=== PATIENT | female | born 1970 | race Caucasian/White ===

== ENCOUNTER → 2018-01-06 | Outpatient (CLI) | payer BC ==
--- NOTE | 2018-01-10 13:24 | MM ---
Reason for exam: screening (asymptomatic). Last mammogram was performed 3 years and 3 months ago. History: Took hormonal contraceptives for 15 years. Physical Findings: A clinical breast exam by your physician is recommended on an annual basis and results should be correlated with mammographic findings. MG 3D Screening Mammo W/Cad Bilateral CC and MLO view(s) were taken. Prior study comparison: September 26, 2014, bilateral MG screening mammo w CAD. May 24, 2012, CAD bilateral diagnostic mammogram. There are scattered fibroglandular densities. There are benign appearing round calcifications bilaterally. There is no discrete abnormality. ASSESSMENT: Benign, BI-RAD 2 RECOMMENDATION: Routine screening mammogram of both breasts in 1 year.
== END | disposition home or self-care (01) ==
LOC: RADMAMWWP 10:23
PROVIDERS: ATTEND Family Medicine
DX: Z12.31 Encounter for screening mammogram for malignant neoplasm of breast (principal)
CPT/HCPCS: 77063; 77067

== ENCOUNTER → 2018-07-11 | Outpatient (CLI) | payer BC ==
--- NOTE | 2018-07-11 13:10 | MR ---
EXAMINATION TYPE: MR wrist LT wo con DATE OF EXAM: 07/11/2018 COMPARISON: None HISTORY: radial styloid tenosynovitis TECHNIQUE: Standard multiplanar, multisequence MRI of the left wrist was performed per department pro tocol without intravenous contrast. FINDINGS: There are multiple subchondral cysts seen within the distal ulna. Additionally there is a small gangl ion cyst seen at the volar aspect of the ulnar styloid process measuring 4 x 3 x 3 mm. The triangular fibrocartilage appears grossly intact with a physiologic central perforation. Tiny subchondral cysts are noted of the lunate bone. Few marginal osteophytes are seen at the first c arpometacarpal joint. Bone marrow signal is otherwise unremarkable of the left wrist. No evidence of acute fracture or disl ocation is seen. Extensor and flexor compartments are unremarkable. Ulnar and radial arteries appear unremarkable. Med navarro nerve is within normal limits. There is tendon thickening and surrounding increased signal of the extensor pollicis brevis and abduc tor pollicis longus (compartment 1) tendons. There is no evidence of tendon discontinuity. IMPRESSION: 1. Moderate extensive pollicis brevis and abductor pollicis longus tenosynovitis without evidence of tendon tear. 2. Mild left wrist arthropathy with subchondral cyst formation of the distal ulna, lunate, and few os teophytes at the first carpometacarpal joint. 3. Incidental 4 mm volar ganglion cysts overlying the distal ulna.
== END | disposition home or self-care (01) ==
LOC: RADMRIMAIN 12:03
PROVIDERS: ATTEND Family Medicine
DX: M65.832 Other synovitis and tenosynovitis, left forearm (principal); M12.832 Other specific arthropathies, not elsewhere classified, left wrist; M85.432 Solitary bone cyst, left ulna and radius; M25.732 Osteophyte, left wrist

== ENCOUNTER 2020-04-13 12:57 | Inpatient (IN) | payer BC, OTHER ==
[2020-04-13] MEDS ORDERED: KETOROLAC 15 MG/ML 1 ML VIAL IVP STA (13:37)
--- NOTE | 2020-04-13 13:57 | XR ---
EXAMINATION TYPE: XR chest 1V portable DATE OF EXAM: 04/13/2020 COMPARISON: None. HISTORY: Shortness of breath. TECHNIQUE: Single frontal view of the chest is obtained. FINDINGS: There is small to moderate right basilar opacity. No pleural effusion, or pneumothorax see n. The cardiac silhouette size is within normal limits. The osseous structures are intact. IMPRESSION: Right basilar infiltrate in the appropriate clinical setting.
--- NOTE | 2020-04-13 14:06 | ED ---
General Adult HPI - General Chief complaint: Chest Pain Stated complaint: covid +, chest heaviness Time Seen by Provider: 04/13/20 13:15 Source: patient, RN notes reviewed Mode of arrival: ambulatory Limitations: no limitations - History of Present Illness Initial comments: Patient is a pleasant 79-year-old female presenting to emergency Department with chest discomfort. Onset of symptoms was a past few days. Discomfort is present with deep breaths otherwise there may be some minimal symptoms. Patient was diagnosed with Rolon virus several days ago. Patient was having symptoms over the past week. Patient did have fever and fatigue and myalgias however the most of those symptoms have improved. Only minimal cough. No dyspnea. No calf pain . - Related Data Home Medications Medication Instructions Recorded Confirmed Calcium Carb/Vitamin D3/Vit K1 1 each PO HS 03/15/16 03/17/16 [Citracal Soft Chew] Marleni 1 tab PO HS 03/15/16 03/17/16 FLUoxetine HCL [PROzac] 10 mg PO HS 03/15/16 03/17/16 Omeprazole 40 mg PO DAILY 03/15/16 03/17/16 Simvastatin [Zocor] 10 mg PO HS 03/15/16 03/17/16 Allergies Allergy/AdvReac Type Severity Reaction Status Date / Time acetaminophen [From Vicodin] Allergy Nausea & Verified 03/17/16 10:14 Vomiting hydrocodone [From Vicodin] Allergy Nausea & Verified 03/17/16 10:14 Vomiting hydromorphone [From Dilaudid] Allergy Rash/Hives Verified 03/17/16 10:14 Review of Systems ROS Statement: Those systems with pertinent positive or pertinent negative responses have been documented in the HPI. ROS Other: All systems not noted in ROS Statement are negative. Constitutional: Reports: as per HPI, fever (Patient has been taking frequent Tylenol and Motrin) Eyes: Denies: eye pain ENT: Denies: ear pain Respiratory: Reports: as per HPI Cardiovascular: Reports: as per HPI Endocrine: Reports: fatigue Gastrointestinal: Denies: abdominal pain Genitourinary: Denies: dysuria Musculoskeletal: Denies: back pain Skin: Denies: rash Neurological: Denies: weakness Past Medical History Past Medical History: GERD/Reflux Additional Past Medical History / Comment(s): barretts esophagus History of Any Multi-Drug Resistant Organisms: None Reported Past Surgical History: Adenoidectomy, Back Surgery, Section, Cholecystectomy, Tonsillectomy Additional Past Surgical History / Comment(s): lithotripsy Past Anesthesia/Blood Transfusion Reactions: No Reported Reaction Smoking Status: Never smoker Past Alcohol Use History: None Reported Past Drug Use History: None Reported - Past Family History Sister(s) Family Medical History: Blood Disorder, Deep Vein Thrombosis (DVT) Daughter(s) Family Medical History: Blood Disorder General Exam Limitations: no limitations General appearance: alert, in no apparent distress Head exam: Present: normocephalic Eye exam: Present: normal appearance Neck exam: Present: normal inspection Respiratory exam: Present: normal lung sounds bilaterally. Absent: chest wall tenderness Cardiovascular Exam: Present: regular rate, normal rhythm Expanded Peripheral pulses: 2+: Radial (R), Radial (L), Dorsalis Pedis (R), Dorsalis Pedis (L) GI/Abdominal exam: Present: soft. Absent: tenderness Extremities exam: Present: normal inspection. Absent: pedal edema, calf tenderness Neurological exam: Present: alert Psychiatric exam: Present: normal affect, normal mood Skin exam: Present: normal color Course Vital Signs 04/13/20 13:10 Temperature 98.3 F Pulse Rate 116 H Respiratory 18 Rate Blood Pressure 126/62 O2 Sat by Pulse 96 Oximetry - Reevaluation(s) Reevaluation #1: 04/13/20 14:54 There is concern for sepsis diagnosed at 1450. Blood culture and lactic acid and IV antibiotics will be ordered. EKG Findings - EKG Comments: EKG Findings:: Sinus tachycardia 101. DC 114. QRS 88. QT 340. QTc 440. Normal axis. Normal QRS. No acute ST change. Medical Decision Making - Medical Decision Making Patient is cold with positive however chest x-ray has appearance of more typical pneumonia. Patient will be covered with IV antibiotics for this. Patient does meet sepsis criteria. Case discussed with Dr. Perkins, who will admit covering for Dr. Arnold. - Lab Data Result diagrams: 04/13/20 14:13 04/13/20 14:13 Lab Results 04/13/20 04/13/20 04/13/20 Range/Units 14:13 14:13 14:13 WBC 2.5 L (3.8-10.6) k/uL RBC 5.00 (3.80-5.40) m/uL Hgb 12.5 (11.4-16.0) gm/dL Hct 37.5 (34.0-46.0) % MCV 75.0 L (80.0-100.0) fL MCH 25.1 (25.0-35.0) pg MCHC 33.5 (31.0-37.0) g/dL RDW 16.0 H (11.5-15.5) % Plt Count 153 (150-450) k/uL MPV 7.8 Neutrophils % 70 % Lymphocytes % 20 % Monocytes % 6 % Eosinophils % 1 % Basophils % 2 % Neutrophils # 1.8 (1.3-7.7) k/uL Lymphocytes # 0.5 L (1.0-4.8) k/uL Monocytes # 0.1 (0-1.0) k/uL Eosinophils # 0.0 (0-0.7) k/uL Basophils # 0.1 (0-0.2) k/uL Anisocytosis Slight Microcytosis Slight Sodium 139 (137-145) mmol/L Potassium 4.4 (3.5-5.1) mmol/L Chloride 104 (98-107) mmol/L Carbon Dioxide 27 (22-30) mmol/L Anion Gap 8 mmol/L BUN 9 (7-17) mg/dL Creatinine 0.63 (0.52-1.04) mg/dL Est GFR (CKD-EPI)AfAm >90 (>60 ml/min/1.73 sqM) Est GFR (CKD-EPI)NonAf >90 (>60 ml/min/1.73 sqM) Glucose 90 (74-99) mg/dL Plasma Lactic Acid Zeyad 1.3 (0.7-2.0) mmol/L Calcium 8.5 (8.4-10.2) mg/dL Magnesium 2.1 (1.6-2.3) mg/dL Total Bilirubin 0.5 (0.2-1.3) mg/dL AST 30 (14-36) U/L ALT 20 (4-34) U/L Alkaline Phosphatase 71 (38-126) U/L Lactate Dehydrogenase 612 (313-618) U/L Troponin I (0.000-0.034) ng/mL Total Protein 6.6 (6.3-8.2) g/dL Albumin 3.8 (3.5-5.0) g/dL 04/13/20 Range/Units 14:13 WBC (3.8-10.6) k/uL RBC (3.80-5.40) m/uL Hgb (11.4-16.0) gm/dL Hct (34.0-46.0) % MCV (80.0-100.0) fL MCH (25.0-35.0) pg MCHC (31.0-37.0) g/dL RDW (11.5-15.5) % Plt Count (150-450) k/uL MPV Neutrophils % % Lymphocytes % % Monocytes % % Eosinophils % % Basophils % % Neutrophils # (1.3-7.7) k/uL Lymphocytes # (1.0-4.8) k/uL Monocytes # (0-1.0) k/uL Eosinophils # (0-0.7) k/uL Basophils # (0-0.2) k/uL Anisocytosis Microcytosis Sodium (137-145) mmol/L Potassium (3.5-5.1) mmol/L Chloride (98-107) mmol/L Carbon Dioxide (22-30) mmol/L Anion Gap mmol/L BUN (7-17) mg/dL Creatinine (0.52-1.04) mg/dL Est GFR (CKD-EPI)AfAm (>60 ml/min/1.73 sqM) Est GFR (CKD-EPI)NonAf (>60 ml/min/1.73 sqM) Glucose (74-99) mg/dL Plasma Lactic Acid Zeyad (0.7-2.0) mmol/L Calcium (8.4-10.2) mg/dL Magnesium (1.6-2.3) mg/dL Total Bilirubin (0.2-1.3) mg/dL AST (14-36) U/L ALT (4-34) U/L Alkaline Phosphatase (38-126) U/L Lactate Dehydrogenase (313-618) U/L Troponin I <0.012 (0.000-0.034) ng/mL Total Protein (6.3-8.2) g/dL Albumin (3.5-5.0) g/dL - Radiology Data Radiology results: image reviewed (Chest x-ray shows right basilar infiltrate.) Critical Care Time Critical Care Time: Yes Total Critical Care Time: 33 Disposition Clinical Impression: Pneumonia, Sepsis, COVID-19 Disposition: ADMITTED IP TO THIS HOSP Is patient prescribed a controlled substance at d/c from ED?: No Referrals: Lacy Arnold DO [Primary Care Provider] - 1-2 days Decision Time: 14:53
[2020-04-13 14:22] LABS: Anisocytosis Slight; Basophils # (A) 0.1 k/uL (0-0.2); Basophils % (A) 2 %; Eosinophils % (A) 1 %; HCT 37.5 % (34.0-46.0); HGB 12.5 gm/dL (11.4-16.0); Lymphocytes # (A) 0.5 k/uL (1.0-4.8); Lymphocytes % (A) 20 %; MCH 25.1 pg (25.0-35.0); MCHC 33.5 g/dL (31.0-37.0); Mean Platelet Volume 7.8; Microcytosis Slight; Monocytes # (A) 0.1 k/uL (0-1.0); Monocytes % (A) 6 %; Neutrophils # (A) 1.8 k/uL (1.3-7.7); Neutrophils % (A) 70 %; Platelet Count 153 k/uL (150-450); WBC 2.5 k/uL (3.8-10.6)
[2020-04-13 14:36] LABS: ALT 20 U/L (4-34); AST 30 U/L (14-36); African American GFR (CKD) >90 (>60 ml/min/1.73 sqM); Albumin 3.8 g/dL (3.5-5.0); Alkaline Phosphatase 71 U/L (38-126); Anion Gap 8 mmol/L; Blood Urea Nitrogen 9 mg/dL (7-17); Calcium 8.5 mg/dL (8.4-10.2); Carbon Dioxide 27 mmol/L (22-30); Chloride 104 mmol/L (98-107); Glucose 90 mg/dL (74-99); LDH 612 U/L (313-618); Magnesium 2.1 mg/dL (1.6-2.3); Non-African American GFR(CKD) >90 (>60 ml/min/1.73 sqM); Potassium 4.4 mmol/L (3.5-5.1); Sodium 139 mmol/L (137-145); Total Bilirubin 0.5 mg/dL (0.2-1.3); Total Protein 6.6 g/dL (6.3-8.2)
[2020-04-13] MEDS ORDERED: SODIUM CHLORIDE 0.9% 1,000 ML IV STA (14:43)
[2020-04-13 14:49] LABS: INR 0.9 (<1.2); Partial Thromboplastin Time 26.2 sec (22.0-30.0); Prothrombin Time 9.9 sec (9.0-12.0)
[2020-04-13] MEDS ORDERED: PNEUMONIA PROTOCOL UTILIZED 1 EACH MISC PO PRN (14:54)
[2020-04-13] MEDS ORDERED: AZITHROMYCIN 500 MG in SODIUM CHLORIDE 0.9% 250 ML IVPB STA (14:54)
[2020-04-13 15:03] LABS: D-Dimer 1.24 mg/L FEU (<0.60)
[2020-04-13 15:06] LABS: C Reactive Protein 128.5 mg/L (<10.0)
--- NOTE | 2020-04-13 15:39 | CT ---
EXAMINATION TYPE: CT angio chest DATE OF EXAM: 04/13/2020 3:21 PM COMPARISON: Same-day radiograph. HISTORY: elevated d-dimer, covid + CT DLP: 287.7 mGycm Automated exposure control for dose reduction was used. CONTRAST: CTA scan of the thorax is performed with IV Contrast, patient injected with 80 mL of Isovue 370, pulm onary embolism protocol. MIP images are created and reviewed. FINDINGS: LUNGS: There is large consolidation with adjacent opacities in the right lower lobe. There is no pl eural effusion or pneumothorax seen. The tracheobronchial tree is patent. MEDIASTINUM: There is satisfactory enhancement of the pulmonary artery and its branches, there is no CT evidence for pulmonary embolism. There are a few mildly enlarged right hilar and subcarinal lymph nodes, may be reactive. No pericardial effusion is seen. OTHER: No additional significant abnormality is seen. IMPRESSION: RIGHT LOWER LOBE PNEUMONIA. NO ACUTE PE.
[2020-04-13] MEDS: SODIUM CHLORIDE 0.9% 1,000 ML IV SCH ×2 (15:54→23:34)
[2020-04-13] MEDS: ZINC SULFATE 220 MG CAP PO SCH (16:10)
[2020-04-13] MEDS: dexAMETHasone 2 MG TAB PO SCH (16:10)
[2020-04-13] MEDS: CHOLECALCIFEROL 1,000 UNIT TAB PO SCH (16:10)
[2020-04-13] MEDS: ENOXAPARIN 40 MG/0.4 ML SYRINGE SQ SCH (16:15)
[2020-04-13] MEDS: ONDANSETRON 4 MG/2 ML VIAL IVP PRN (17:56)
[2020-04-13] MEDS: ACETAMINOPHEN TAB 500 MG TAB PO PRN (18:29)
--- NOTE | 2020-04-13 20:55 | P.HPIM ---
History of Present Illness H&P Date: 04/13/20 Chief Complaint: Shortness of breath Patient is a 49-year-old female with a known history of GERD, Sawyer's esophagus, history of back surgery, lithotripsy and cholecystectomy came to ER with the complaints of chest discomfort and pressure-like sensation associated shortness of breath. Patient states that she was diagnosed with COVID-19 few days ago. Since then she has been having worsening shortness of breath and increased symptoms which made her to come to the ER. Patient is also getting fever on and off. T-max was 100.1 on admission and patient was tachycardic. Pulse ox 96% room air on admission. Chest x-ray showed right basilar infiltrate in the appropriate clinical setting. CT angiogram showed right lower lobe pneumonia. EKG showed sinus tachycardia. Laboratory data showed WBC 2.5, hemoglobin 12.5, MCV 75.0 RDW 16.0 D-dimer is 1.24 CRP 128.5 LDH 612, liver enzymes are not elevated, ferritin is pending at this time. Review of Systems Constitutional: Patient does have fever and no chills. Generalized weakness and malaise and fatigue.. Abdomen: Patient denied nausea vomiting and diarrhea and abdominal pain. Cardiovascular: Patient denies any chest pain or short of breath no palpitations. Respiratory:Cough without sputum production and shortness of breath Neurologic: Patient denied any numbness or tingling headache. Musculoskeletal: Patient denies any complaints of joint swelling or deformity. Skin: Negative Psychiatric: Negative Endocrine: No heat or cold intolerance. No recent weight gain. Genitourinary: No dysuria or hematuria. All other 14 point ROS negative except the above Past Medical History Past Medical History: GERD/Reflux Additional Past Medical History / Comment(s): barretts esophagus History of Any Multi-Drug Resistant Organisms: None Reported Past Surgical History: Adenoidectomy, Back Surgery, Section, Cholecystectomy, Tonsillectomy Additional Past Surgical History / Comment(s): lithotripsy Past Anesthesia/Blood Transfusion Reactions: No Reported Reaction Smoking Status: Never smoker Past Alcohol Use History: None Reported Past Drug Use History: None Reported - Past Family History Sister(s) Family Medical History: Blood Disorder, Deep Vein Thrombosis (DVT) Daughter(s) Family Medical History: Blood Disorder Medications and Allergies Home Medications Medication Instructions Recorded Confirmed Type Calcium Carb/Vitamin D3/Vit K1 1 tab PO HS 10/24/16 11/22/20 History [Citracal Soft Chew] Norethindrone [Lolita] 0.35 mg PO HS 04/13/20 04/13/20 History Omeprazole 20 mg PO DAILY 04/13/20 04/13/20 History levOCARNitine [l-Carnitine] 500 mg PO HS 04/13/20 04/13/20 History Allergies Allergy/AdvReac Type Severity Reaction Status Date / Time hydromorphone [From Dilaudid] Allergy Rash/Hives Verified 04/13/20 15:28 hydrocodone [From Vicodin] AdvReac Nausea & Verified 04/13/20 15:28 Vomiting Physical Exam Vitals: Vital Signs Temp Pulse Resp BP Pulse Ox 04/13/20 16:08 98 18 112/58 100 04/13/20 13:10 98.3 F 116 H 18 126/62 96 Intake and Output 04/13/20 04/13/20 04/13/20 06:59 14:59 22:59 Other: Weight 70.307 kg PHYSICAL EXAMINATION: Patient is lying in the bed comfortably, no acute distress, awake alert and oriented.. HEENT: Normocephalic. Neck is supple. Pupils reactive. Nostrils clear. Oral cavity is moist. Ears reveal no drainage. Neck reveals no JVD, carotid bruits, or thyromegaly. CHEST EXAMINATION: Trachea is central. Symmetrical expansion. Lung clancy clear to auscultation and percussion. CARDIAC: Normal S1, S2 with no gallops. No murmurs ABDOMEN: Soft. Bowel sounds normal. No organomegaly. No abdominal bruits. Extremities: reveal no edema. No clubbing or cyanosis Neurologically awake, alert, oriented x3 with well-coordinated movements. No focal deficits noted Skin: No rash or skin lesions. Psychiatric: Coperative. Nonsuicidal Musculoskeletal: No joint swelling or deformity. Normal range of motion. Results CBC & Chem 7: 04/13/20 14:13 04/13/20 14:13 Labs: Abnormal Lab Results - Last 24 Hours (Table) 04/13/20 04/13/20 04/13/20 Range/Units 14:13 14:13 14:13 WBC 2.5 L (3.8-10.6) k/uL MCV 75.0 L (80.0-100.0) fL RDW 16.0 H (11.5-15.5) % Lymphocytes # 0.5 L (1.0-4.8) k/uL D-Dimer 1.24 H (<0.60) mg/L FEU C-Reactive Protein 128.5 H (<10.0) mg/L Thrombosis Risk Factor Assmnt - DVT/VTE Prophylaxis DVT/VTE Prophylaxis: Pharmacologic Prophylaxis ordered Assessment and Plan Assessment: Right lower lobe pneumonia Sepsis secondary to above Recent history of COVID-19 infection GERD Elevated CRP level DVT prophylaxis with heparin subcu Plan: Patient will be continued on IV hydration and antibiotics now ceftriaxone and azithromycin.. Continue with COVID-19 isolation. Patient was started dexamethasone and Lovenox. Follow-up tumor markers tomorrow. Currently patient is on room air. Continue to follow closely and CBC and BMP tomorrow. Further recommendations based on clinical course. Time with Patient: Greater than 30
[2020-04-13] MEDS: CALCIUM CARB PO SCH (21:49)
[2020-04-13] MEDS: VITAMIN D3 PO SCH (21:49)
[2020-04-13] MEDS: VIT K1 PO SCH (21:49)
[2020-04-13] MEDS: NON FORMULARY DRUG (Norethindrone [Camila] 0.35 MG Tablet) PO SCH (21:49)
[2020-04-13] MEDS: [UNRECOGNIZED DRUG - OTHER] PO SCH (21:49)
[2020-04-13] MEDS: ASCORBIC ACID 500 MG TAB PO SCH (21:54)
[2020-04-13] MEDS: levOCARNitine (WITH SUGAR) 100 MG/ML BOTTLE PO SCH (22:10)
[2020-04-13 23:03] LABS: Ferritin 105.5 ng/mL (10.0-291.0)
[2020-04-14] MEDS: ACETAMINOPHEN TAB 500 MG TAB PO PRN ×2 (06:10→19:25)
[2020-04-14] MEDS: ONDANSETRON 4 MG/2 ML VIAL IVP PRN (06:14)
[2020-04-14] MEDS: SODIUM CHLORIDE 0.9% 1,000 ML IV SCH ×3 (06:26→23:03)
[2020-04-14] MEDS: AZITHROMYCIN 500 MG TAB PO SCH (08:56)
[2020-04-14] MEDS: ZINC SULFATE 220 MG CAP PO SCH (08:56)
[2020-04-14] MEDS: ASCORBIC ACID 500 MG TAB PO SCH ×2 (08:56→21:35)
[2020-04-14] MEDS: dexAMETHasone 2 MG TAB PO SCH (08:57)
[2020-04-14] MEDS: CHOLECALCIFEROL 1,000 UNIT TAB PO SCH (08:57)
[2020-04-14] MEDS: PANTOPRAZOLE 40 MG TABLET PO SCH (08:57)
--- NOTE | 2020-04-14 12:40 | XR ---
EXAMINATION TYPE: XR chest 1V DATE OF EXAM: 04/14/2020 CLINICAL HISTORY: pneumonia. TECHNIQUE: Portable frontal view of the chest. COMPARISON: 04/13/2020 chest radiograph. 04/13/2020 CTA chest. FINDINGS: The cardiomediastinal silhouette is within normal limits for size. Pulmonary vasculature i s normal. Focal right basilar airspace opacity unchanged. No pleural effusion, or pneumothorax seen. The osseous structures are intact. IMPRESSION: Unchanged focal right basilar pneumonia.
--- NOTE | 2020-04-14 13:57 | P.CNPUL ---
History of Present Illness Consult date: 04/14/20 Requesting physician: Andrea Perkins Reason for consult: dyspnea, cough, chest pain Chief complaint: Dyspnea, cough, chest discomfort History of present illness: 79-year-old white female patient of Dr. Lacy Banks, surgical history of GERD/reflux, former smoker, history of back surgery, lithotripsy and cholecystectomy who presented to the emergency department on 04/13/2020 with the shortness of breath and pressure-like sensation in her chest. Patient had outpatient testing for COVID 19 last and apparently she tested positive. Chest x-ray showed bibasilar infiltrate. CT chest showed large consolidation with adjacent opacities in the right lower lobe, no pleural effusion or pneumothorax, EKG showed sinus tachycardia. Lab work showed a white blood cell count is 2.5, hemoglobin of 12.5, lymphopenia with the lymphocyte, 0.5, d-dimer was 1.24, eventually sent renal profile were unremarkable, plasma lactic acid was 1.3, LFTs were within normal limits, troponin was less than 0.012, LDH 612, CRP was elevated at 128.5, pro-calcitonin level was 0.14. Patient was started on Zithromax and Rocephin, oral Decadron. She remains on room air, she is calm and comfortable, denies any chest pain right now, denies any hemoptysis, she is afebrile. Review of Systems All systems: negative Constitutional: Denies chills, Denies fever Eyes: denies blurred vision, denies pain Ears, nose, mouth and throat: Denies headache, Denies sore throat Cardiovascular: Reports chest pain, Denies shortness of breath Respiratory: Denies cough Gastrointestinal: Denies abdominal pain, Denies diarrhea, Denies nausea, Denies vomiting Genitourinary: Denies dysuria, Denies hematuria Musculoskeletal: Denies myalgias Integumentary: Denies pruritus, Denies rash Neurological: Denies numbness, Denies weakness Psychiatric: Denies anxiety, Denies depression Endocrine: Denies fatigue, Denies weight change Past Medical History Past Medical History: GERD/Reflux Additional Past Medical History / Comment(s): barretts esophagus,kidney stones History of Any Multi-Drug Resistant Organisms: None Reported Past Surgical History: Adenoidectomy, Back Surgery, Section, Cholecystectomy, Tonsillectomy Additional Past Surgical History / Comment(s): lithotripsy Past Anesthesia/Blood Transfusion Reactions: No Reported Reaction Past Psychological History: Anxiety Smoking Status: Former smoker Past Alcohol Use History: None Reported Additional Past Alcohol Use History / Comment(s): smoked 28 years 1ppd quit 2011 Past Drug Use History: None Reported - Past Family History Sister(s) Family Medical History: Blood Disorder, Deep Vein Thrombosis (DVT) Daughter(s) Family Medical History: Blood Disorder Medications and Allergies Home Medications Medication Instructions Recorded Confirmed Type Calcium Carb/Vitamin D3/Vit K1 1 tab PO HS 03/15/16 04/13/20 History [Citracal Soft Chew] Norethindrone [Lolita] 0.35 mg PO HS 04/13/20 04/13/20 History Omeprazole 20 mg PO DAILY 04/13/20 04/13/20 History levOCARNitine [l-Carnitine] 500 mg PO HS 04/13/20 04/13/20 History Allergies Allergy/AdvReac Type Severity Reaction Status Date / Time hydromorphone [From Dilaudid] Allergy Rash/Hives Verified 04/13/20 15:28 hydrocodone [From Vicodin] AdvReac Nausea & Verified 04/13/20 15:28 Vomiting Physical Exam Vitals: Vital Signs Temp Pulse Pulse Resp BP BP Pulse Ox 04/14/20 12:27 97.6 F 82 109/70 95 04/14/20 07:00 98.1 F 84 17 94/57 93 L 04/13/20 22:40 97.9 F 95 18 121/74 94 L 04/13/20 19:40 98.4 F 104 H 20 117/61 93 L 04/13/20 18:27 114 H 18 112/68 96 04/13/20 17:51 100.1 F H 122 H 20 123/80 97 04/13/20 16:08 98 18 112/58 100 Intake and Output 04/13/20 04/14/20 04/14/20 22:59 06:59 14:59 Other: # Voids 1 2 Weight 70.307 kg GENERAL EXAM: Alert, very pleasant, 49-year-old white female patient, on room air, with a pulse ox of 95% comfortable in no apparent distress. HEAD: Normocephalic/atraumatic. EYES: Normal reaction of pupils, equal size. Conjunctiva pink, sclera white. NOSE: Clear with pink turbinates. THROAT: No erythema or exudates. NECK: No masses, no JVD, no thyroid enlargement, no adenopathy. CHEST: No chest wall deformity. Symmetrical expansion. LUNGS: Equal air entry with no crackles, wheeze, rhonchi or dullness. CVS: Regular rate and rhythm, normal S1 and S2, no gallops, no murmurs, no rubs ABDOMEN: Soft, nontender. No hepatosplenomegaly, normal bowel sounds, no guarding or rigidity. EXTREMITIES: No clubbing, no edema, no cyanosis, 2+ pulses and upper and lower extremities. MUSCULOSKELETAL: Muscle strength and tone normal. SPINE: No scoliosis or deformity SKIN: No rashes CENTRAL NERVOUS SYSTEM: Alert and oriented -3. No focal deficits, tone is normal in all 4 extremities. PSYCHIATRIC: Alert and oriented -3. Appropriate affect. Intact judgment and insight. Results - Laboratory Findings CBC and BMP: 04/13/20 14:13 04/13/20 14:13 PT/INR, D-dimer PT 9.9 sec (9.0-12.0) 04/13/20 14:13 INR 0.9 (<1.2) 04/13/20 14:13 D-Dimer 1.24 mg/L FEU (<0.60) H 04/13/20 14:13 Abnormal lab findings: Abnormal Labs 04/13/20 04/13/20 04/13/20 14:13 14:13 14:13 WBC 2.5 L MCV 75.0 L RDW 16.0 H Lymphocytes # 0.5 L D-Dimer 1.24 H C-Reactive Protein 128.5 H Procalcitonin 04/13/20 14:13 WBC MCV RDW Lymphocytes # D-Dimer C-Reactive Protein Procalcitonin 0.14 H - Diagnostic Findings Chest x-ray: report reviewed, image reviewed CT scan - chest: report reviewed, image reviewed Assessment and Plan Plan: Assessment: #1. Acute COVID 19 infection, she had outpatient positive COVID 19 PCR test on 04/10/2020 #2. Right focal basilar airspace opacity related to community acquired pneumonia #3. Dyspnea, chest pain related to community acquired pneumonia #4. Armor smoker, currently in remission #5. Lymphopenia related to COVID 19 infection #6. Increased d-dimer was CTA chest negative for pulmonary embolism #7. History of GERD and Sawyer's esophagus #8. History of back surgeries #9. Lithotripsy and cholecystectomy Plan: Continue current antibiotics, continue Decadron, prophylactic dose of Lovenox, patient is on room air, vital signs are stable, no fever or chills, chest x-ray and CT chest reviewed showing right basilar airspace disease related to pneumonia likely bacterial, likely related to community acquired pathogens. We will continue to monitor the patient and monitor oxygenation dyspnea, and febrile pattern. Follow-up chest x-ray in the morning, if she remains stable and continues to improve may consider discharge home on oral antibiotics in the next 24 hours I performed a history & physical examination of the patient and discussed their management with my nurse practitioner, Aisha Kleni. I reviewed the nurse practitioner's note and agree with the documented findings and plan of care. Lung sounds are positive for diminished breath sounds at the right base The findings and the impression was discussed with the patient. I attest to the documentation by the nurse practitioner. Time with Patient: Greater than 30
[2020-04-14] MEDS: ENOXAPARIN 40 MG/0.4 ML SYRINGE SQ SCH (17:08)
[2020-04-14] MEDS: VITAMIN D3 PO SCH (21:37)
[2020-04-14] MEDS: VIT K1 PO SCH (21:37)
[2020-04-14] MEDS: CALCIUM CARB PO SCH (21:37)
[2020-04-14] MEDS: [UNRECOGNIZED DRUG - OTHER] PO SCH (21:37)
[2020-04-14] MEDS: NON FORMULARY DRUG (Norethindrone [Camila] 0.35 MG Tablet) PO SCH (21:38)
--- NOTE | 2020-04-14 22:29 | P.PN ---
Subjective Patient is a 49-year-old female with a known history of GERD, Sawyer's esophagus, history of back surgery, lithotripsy and cholecystectomy came to ER with the complaints of chest discomfort and pressure-like sensation associated shortness of breath. Patient states that she was diagnosed with COVID-19 few days ago. Since then she has been having worsening shortness of breath and increased symptoms which made her to come to the ER. Patient is also getting fever on and off. T-max was 100.1 on admission and patient was tachycardic. Pulse ox 96% room air on admission. Chest x-ray showed right basilar infiltrate in the appropriate clinical setting. CT angiogram showed right lower lobe pneumonia. EKG showed sinus tachycardia. Laboratory data showed WBC 2.5, hemoglobin 12.5, MCV 75.0 RDW 16.0 D-dimer is 1.24 CRP 128.5 LDH 612, liver enzymes are not elevated, ferritin is pending at this time. 04/14/2020 This is a pleasant 49 years old female who presents with respiratory distress and found to have right lower lobe pneumonia which is suspected to be complete tear quite pneumonia on the top of her recent diagnosis of Covid 19 infection a few days ago. Currently patient remains on room air. She is mildly dyspneic. Labs from yesterday showing mild leukopenia with WBC is 2.5K and mild lymphopenia. D-dimer is slightly elevated at 1.2 however CTA of the chest is negative for PE. Pro-calcitonin is slightly elevated at 0.14 Patient remains on Zithromax and ceftriaxone and dexamethasone 6 mg daily. Normal saline is lower to 50 mL per hour. Chest x-ray showing persistent right lower lobe infiltrate. Possible discharge in 24 hours to 48 hours she keeps improvement Objective - Vital Signs Vital signs: Vital Signs Temp 97.6 F 04/14/20 12:27 Pulse 82 04/14/20 12:27 Resp 17 04/14/20 07:00 BP 109/70 04/14/20 12:27 Pulse Ox 95 04/14/20 12:27 Intake & Output 04/13/20 04/14/20 04/14/20 18:59 06:59 18:59 Weight 70.307 kg 70.307 kg Other: # Voids 2 2 - Exam GENERAL: The patient is alert and oriented x3, not in any acute distress. Well developed, well nourished. HEENT: Pupils are round and equally reacting to light. EOMI. No scleral icterus. No conjunctival pallor. Normocephalic, atraumatic. No pharyngeal erythema. No thyromegaly. CARDIOVASCULAR: S1 and S2 present. No murmurs, rubs, or gallops. PULMONARY: Chest is clear to auscultation, no wheezing or crackles. ABDOMEN: Soft, nontender, nondistended, normoactive bowel sounds. No palpable organomegaly. MUSCULOSKELETAL: No joint swelling or deformity. EXTREMITIES: No cyanosis, clubbing, or pedal edema. NEUROLOGICAL: Gross neurological examination did not reveal any focal deficits. SKIN: No rashes. no petechiae. - Labs CBC & Chem 7: 04/13/20 14:13 04/13/20 14:13 Labs: Abnormal Lab Results - Last 24 Hours (Table) 04/13/20 Range/Units 14:13 Procalcitonin 0.14 H (0.02-0.09) ng/mL Microbiology - Last 24 Hours (Table) 04/13/20 14:13 Blood Culture - Preliminary Blood No Growth after 24 hours Assessment and Plan Assessment: Right lower lobe pneumonia Sepsis secondary to above Recent history of COVID-19 infection GERD Plan: This is a pleasant 49 years old female who presents with right pneumonia. Continue with antibiotics. Follow-up pulmonary consult recommendation. Repeat chest x-ray in the morning Labs and medication were reviewed.. Continue same treatment. Continue with symptomatic treatment. Resume home medication. Monitor lytes and vitals. DVT and GI prophylaxis. Further recommendationsas per clinical course of the patient DVT prophylaxis: Subcutaneous Lovenox gi prophylaxis: Ppi
[2020-04-14 23:08] LABS: Anisocytosis Slight; Basophils % (A) 1 %; Eosinophils # (A) 0.1 k/uL (0-0.7); Eosinophils % (A) 1 %; HCT 32.8 % (34.0-46.0); Lymphocytes # (A) 0.6 k/uL (1.0-4.8); Lymphocytes % (A) 9 %; MCH 25.5 pg (25.0-35.0); MCHC 33.6 g/dL (31.0-37.0); MCV 76.1 fL (80.0-100.0); Mean Platelet Volume 6.9; Microcytosis Slight; Monocytes # (A) 0.2 k/uL (0-1.0); Monocytes % (A) 3 %; Neutrophils # (A) 5.4 k/uL (1.3-7.7); Neutrophils % (A) 85 %; Platelet Count 185 k/uL (150-450); RBC 4.31 m/uL (3.80-5.40); RDW 16.1 % (11.5-15.5); WBC 6.3 k/uL (3.8-10.6)
[2020-04-14] MEDS: levOCARNitine (WITH SUGAR) 100 MG/ML BOTTLE PO SCH (23:10)
[2020-04-15] MEDS: SODIUM CHLORIDE 0.9% 1,000 ML IV SCH ×2 (06:00→23:17)
[2020-04-15] MEDS: ACETAMINOPHEN TAB 500 MG TAB PO PRN (07:42)
[2020-04-15] MEDS: ONDANSETRON 4 MG/2 ML VIAL IVP PRN ×3 (07:43→20:32)
[2020-04-15] MEDS: CHOLECALCIFEROL 1,000 UNIT TAB PO SCH (09:23)
[2020-04-15] MEDS: PANTOPRAZOLE 40 MG TABLET PO SCH (09:23)
[2020-04-15] MEDS: ZINC SULFATE 220 MG CAP PO SCH (09:23)
[2020-04-15] MEDS: AZITHROMYCIN 500 MG TAB PO SCH (09:23)
[2020-04-15] MEDS: ASCORBIC ACID 500 MG TAB PO SCH ×2 (09:23→21:14)
[2020-04-15] MEDS: dexAMETHasone 2 MG TAB PO SCH (09:24)
--- NOTE | 2020-04-15 10:55 | XR ---
EXAMINATION TYPE: XR chest 1V portable DATE OF EXAM: 04/15/2020 CLINICAL HISTORY: right lung pneumonia. TECHNIQUE: Portable frontal view of the chest. COMPARISON: 04/14/2020 chest radiograph FINDINGS: The cardiomediastinal silhouette is within normal limits for size. Pulmonary vasculature i s normal. Redemonstrated right basilar focal airspace opacity. There is increased haziness of the rig ht costophrenic angle, likely small pleural effusion. No pneumothorax seen. The osseous structures ar e intact. IMPRESSION: Redemonstrated right basilar pneumonia, now with increased small right pleural effusion.
[2020-04-15] MEDS ORDERED: guaiFENesin-DM 100-10MG/5ML 10 ML CUP PO SCH (12:15)
[2020-04-15] MEDS: ENOXAPARIN 40 MG/0.4 ML SYRINGE SQ SCH (14:54)
[2020-04-15] MEDS ORDERED: CHOLESTYRAMINE (WITH SUGAR) 4 GM PACKET PO PRN (16:00)
[2020-04-15] MEDS: guaiFENesin-DM 100-10MG/5ML 10 ML CUP PO SCH ×2 (16:55→23:17)
--- NOTE | 2020-04-15 17:33 | P.PN ---
Subjective Patient is a 49-year-old female with a known history of GERD, Sawyer's esophagus, history of back surgery, lithotripsy and cholecystectomy came to ER with the complaints of chest discomfort and pressure-like sensation associated shortness of breath. Patient states that she was diagnosed with COVID-19 few days ago. Since then she has been having worsening shortness of breath and increased symptoms which made her to come to the ER. Patient is also getting fever on and off. T-max was 100.1 on admission and patient was tachycardic. Pulse ox 96% room air on admission. Chest x-ray showed right basilar infiltrate in the appropriate clinical setting. CT angiogram showed right lower lobe pneumonia. EKG showed sinus tachycardia. Laboratory data showed WBC 2.5, hemoglobin 12.5, MCV 75.0 RDW 16.0 D-dimer is 1.24 CRP 128.5 LDH 612, liver enzymes are not elevated, ferritin is pending at this time. 04/14/2020 This is a pleasant 49 years old female who presents with respiratory distress and found to have right lower lobe pneumonia which is suspected to be complete tear quite pneumonia on the top of her recent diagnosis of Covid 19 infection a few days ago. Currently patient remains on room air. She is mildly dyspneic. Labs from yesterday showing mild leukopenia with WBC is 2.5K and mild lymphopenia. D-dimer is slightly elevated at 1.2 however CTA of the chest is negative for PE. Pro-calcitonin is slightly elevated at 0.14 Patient remains on Zithromax and ceftriaxone and dexamethasone 6 mg daily. Normal saline is lower to 50 mL per hour. Chest x-ray showing persistent right lower lobe infiltrate. Possible discharge in 24 hours to 48 hours she keeps improvement 04/15/2020 Patient still been treated for recent history of Covid infection and community acquired pneumonia. Today she feels a little bit worse with nausea and headache, she has persistent cough and crepitus and has been added. She remains afebrile and blood pressure 127/70, she is slightly tachypneic with present rate about 20 bpm. She is saturating 93% on room air. WBC today is within the reference range at 6.3K. Trestle CBC is unremarkable Chest x-ray showed redemonstrated trichomoniasis basilar pneumonia, now with increased small right pleural effusion She is currently on Zithromax and Rocephin. Also she is on oral dexamethasone and Lovenox 40 mg daily. She is on zinc sulfate and normal saline at 50 mL per hour. Pulmonary team on the case Objective - Vital Signs Vital signs: Vital Signs Temp 97.6 F 04/15/20 11:32 Pulse 76 04/15/20 11:32 Resp 18 04/15/20 11:32 BP 127/70 04/15/20 11:32 Pulse Ox 93 L 04/15/20 11:32 Intake & Output 04/14/20 04/15/20 04/15/20 18:59 06:59 18:59 Intake Total 360 150 Balance 360 150 Intake: Intake, IV Titration 150 Amount Sodium Chloride 0.9% 1, 150 000 ml @ 50 mls/hr IV . Q20H [facility] Rx#:[id number] Oral 360 Other: Voiding Method Toilet Toilet Toilet # Voids 2 0 0 - Exam GENERAL: The patient is alert and oriented x3, not in any acute distress. Well developed, well nourished. HEENT: Pupils are round and equally reacting to light. EOMI. No scleral icterus. No conjunctival pallor. Normocephalic, atraumatic. No pharyngeal erythema. No thyromegaly. CARDIOVASCULAR: S1 and S2 present. No murmurs, rubs, or gallops. PULMONARY: Chest is clear to auscultation, no wheezing or crackles. ABDOMEN: Soft, nontender, nondistended, normoactive bowel sounds. No palpable organomegaly. MUSCULOSKELETAL: No joint swelling or deformity. EXTREMITIES: No cyanosis, clubbing, or pedal edema. NEUROLOGICAL: Gross neurological examination did not reveal any focal deficits. SKIN: No rashes. no petechiae. - Labs CBC & Chem 7: 04/14/20 22:56 04/13/20 14:13 Labs: Abnormal Lab Results - Last 24 Hours (Table) 04/14/20 Range/Units 22:56 Hgb 11.0 L (11.4-16.0) gm/dL Hct 32.8 L (34.0-46.0) % MCV 76.1 L (80.0-100.0) fL RDW 16.1 H (11.5-15.5) % Lymphocytes # 0.6 L (1.0-4.8) k/uL Microbiology - Last 24 Hours (Table) 04/13/20 14:13 Blood Culture - Preliminary Blood No Growth after 24 hours Assessment and Plan Assessment: Right lower lobe pneumonia, mostly community acquired pneumonia. Bacterial infection is suspected over her viral pneumonia Sepsis secondary to above Recent history of COVID-19 infection GERD Plan: This is a pleasant 49 years old female who presents with right pneumonia. Continue with antibiotics. Follow-up pulmonary consult recommendation. And Robitussin Labs and medication were reviewed.. Continue same treatment. Continue with symptomatic treatment. Resume home medication. Monitor lytes and vitals. DVT and GI prophylaxis. Further recommendationsas per clinical course of the patient DVT prophylaxis: Subcutaneous Lovenox gi prophylaxis: Ppi
--- NOTE | 2020-04-15 18:14 | P.PN ---
Subjective Progress Note Date: 04/15/20 Principal diagnosis: Acute COVID 19 infection, right lower lobe pneumonia 79-year-old white female patient of Dr. Lacy Banks, surgical history of GERD/reflux, former smoker, history of back surgery, lithotripsy and cholecystectomy who presented to the emergency department on 04/13/2020 with the shortness of breath and pressure-like sensation in her chest. Patient had outpa tient testing for COVID 19 last and apparently she tested positive. Chest x-ray showed bibasilar infiltrate. CT chest showed large consolidation with adjacent opacities in the right lower lobe, no pleural effusion or pneumothorax, EKG showed sinus tachycardia. Lab work showed a white blood cell count is 2.5, hemoglobin of 12.5, lymphopenia with the lymphocyte, 0.5, d-dimer was 1.24, eventually sent renal profile were unremarkable, plasma lactic acid was 1.3, LFTs were within normal limits, troponin was less than 0.012, LDH 612, CRP was elevated at 128.5, pro-calcitonin level was 0.14. Patient was started on Zithromax and Rocephin, oral Decadron. She remains on room air, she is calm and comfortable, denies any chest pain right now, denies any hemoptysis, she is afebrile. On 04/15/2020 patient seen in follow-up on the general medical surgical floor, she is awake and alert, appears quite stable, breathing comfortably, room air pulse ox of 93-96%, she's been afebrile, follow-up chest x-ray reviewed showing redemonstration of right basilar pneumonia with increasing small right pleural effusion. Patient remains on a combination of azithromycin and Rocephin, she denies any chest pain, she remains on oral Decadron, she is on Lovenox at prophylactic doses. Today's labs have been reviewed, showing improvement and leukopenia, white blood cell count is 6.3, hemoglobin is 11. No acute events overnight, overall patient is feeling better. Objective - Vital Signs Vital signs: Vital Signs Temp 97.6 F 04/15/20 11:32 Pulse 76 04/15/20 11:32 Resp 18 04/15/20 11:32 BP 127/70 04/15/20 11:32 Pulse Ox 93 L 04/15/20 11:32 Intake & Output 04/14/20 04/15/20 04/15/20 18:59 06:59 18:59 Intake Total 245 067 0944 Balance 480 315 1633 Intake: Intake, IV Titration 150 650 Amount Sodium Chloride 0.9% 1, 150 600 000 ml @ 50 mls/hr IV . Q20H [facility] Rx#:[id number] cefTRIAXone 2 gm In 50 Sodium Chloride 0.9% 50 ml @ 100 mls/hr IVPB Q24HR [facility] Rx#:[id number] Oral 360 740 Other: Voiding Method Toilet Toilet Toilet # Voids 2 0 4 - Exam GENERAL EXAM: Alert, pleasant, 49-year-old white female on room air with a pulse ox between 93-96% comfortable in no apparent distress. HEAD: Normocephalic/atraumatic. EYES: Normal reaction of pupils, equal size. Conjunctiva pink, sclera white. NOSE: Clear with pink turbinates. THROAT: No erythema or exudates. NECK: No masses, no JVD, no thyroid enlargement, no adenopathy. CHEST: No chest wall deformity. Symmetrical expansion. LUNGS: Equal air entry with right basilar diminished breath sound CVS: Regular rate and rhythm, normal S1 and S2, no gallops, no murmurs, no rubs ABDOMEN: Soft, nontender. No hepatosplenomegaly, normal bowel sounds, no guarding or rigidity. EXTREMITIES: No clubbing, no edema, no cyanosis, 2+ pulses and upper and lower extremities. MUSCULOSKELETAL: Muscle strength and tone normal. SPINE: No scoliosis or deformity SKIN: No rashes CENTRAL NERVOUS SYSTEM: Alert and oriented -3. No focal deficits, tone is normal in all 4 extremities. PSYCHIATRIC: Alert and oriented -3. Appropriate affect. Intact judgment and insight. - Labs CBC & Chem 7: 04/14/20 22:56 04/13/20 14:13 Labs: Abnormal Lab Results - Last 24 Hours (Table) 04/14/20 Range/Units 22:56 Hgb 11.0 L (11.4-16.0) gm/dL Hct 32.8 L (34.0-46.0) % MCV 76.1 L (80.0-100.0) fL RDW 16.1 H (11.5-15.5) % Lymphocytes # 0.6 L (1.0-4.8) k/uL Microbiology - Last 24 Hours (Table) 04/13/20 14:13 Blood Culture - Preliminary Blood No Growth after 48 hours Assessment and Plan Plan: Assessment: #1. Acute COVID 19 infection, she had outpatient positive COVID 19 PCR test on 04/10/2020 #2. Right focal basilar airspace opacity related to community acquired pneumonia #3. Dyspnea, chest pain related to community acquired pneumonia #4. Armor smoker, currently in remission #5. Lymphopenia related to COVID 19 infection #6. Increased d-dimer was CTA chest negative for pulmonary embolism #7. History of GERD and Sawyer's esophagus #8. History of back surgeries #9. Lithotripsy and cholecystectomy Plan: Continue current medical treatment, continue oral steroids, current antibiotics, will repeat rapid COVID 19 test. Clinically patient appears to be stable, follow-up chest x-ray has been reviewed showing findings most compatible with the bacterial right lower lobe pneumonia, findings not typically associated with the COVID 19 pneumonitis. Remains stable, will chest x-ray in the morning, if continues to do well may consider discharge home on oral antibiotics in the next 24 hours. I performed a history & physical examination of the patient and discussed their management with my nurse practitioner, Aisha Klein. I reviewed the nurse practitioner's note and agree with the documented findings and plan of care. Lung sounds are positive for diminished breath sounds at the right base The findings and the impression was discussed with the patient. I attest to the documentation by the nurse practitioner. Time with Patient: Less than 30
[2020-04-15] MEDS: levOCARNitine (WITH SUGAR) 100 MG/ML BOTTLE PO SCH (21:14)
[2020-04-15] MEDS: NON FORMULARY DRUG (Norethindrone [Camila] 0.35 MG Tablet) PO SCH (21:15)
[2020-04-15] MEDS: CALCIUM CARB PO SCH (21:15)
[2020-04-15] MEDS: VITAMIN D3 PO SCH (21:15)
[2020-04-15] MEDS: [UNRECOGNIZED DRUG - OTHER] PO SCH (21:15)
[2020-04-15] MEDS: VIT K1 PO SCH (21:15)
[2020-04-16] MEDS: guaiFENesin-DM 100-10MG/5ML 10 ML CUP PO SCH ×2 (05:23→12:15)
[2020-04-16] MEDS: ZINC SULFATE 220 MG CAP PO SCH (10:05)
[2020-04-16] MEDS: ASCORBIC ACID 500 MG TAB PO SCH (10:05)
[2020-04-16] MEDS: dexAMETHasone 2 MG TAB PO SCH (10:06)
[2020-04-16] MEDS: CHOLECALCIFEROL 1,000 UNIT TAB PO SCH (10:06)
[2020-04-16] MEDS: AZITHROMYCIN 500 MG TAB PO SCH (10:06)
[2020-04-16] MEDS: PANTOPRAZOLE 40 MG TABLET PO SCH (10:06)
[2020-04-16] MEDS: ONDANSETRON 4 MG/2 ML VIAL IVP PRN (10:07)
[2020-04-16] MEDS: ACETAMINOPHEN TAB 500 MG TAB PO PRN (11:51)
[2020-04-16 12:19] VITALS: BP 125/75; PULSE 80; RESP 17; TEMP 98.1
--- NOTE | 2020-04-16 13:02 | XR ---
EXAMINATION TYPE: XR chest 1V portable DATE OF EXAM: 04/16/2020 CLINICAL HISTORY: shortness of breath. TECHNIQUE: Portable frontal view of the chest. COMPARISON: 04/15/2020 chest radiograph FINDINGS: The cardiomediastinal silhouette is within normal limits for size. Pulmonary vasculature i s normal. Unchanged focal airspace opacity of the right lung base and small right pleural effusion. N o pneumothorax seen. The osseous structures are intact. IMPRESSION: Right basilar pneumonia and small right pleural effusion unchanged versus 04/15/2020.
--- NOTE | 2020-04-16 14:14 | P.PN ---
Subjective Progress Note Date: 04/16/20 Principal diagnosis: Acute COVID 19 infection, right lower lobe pneumonia 79-year-old white female patient of Dr. Lacy Banks, surgical history of GERD/reflux, former smoker, history of back surgery, lithotripsy and cholecystectomy who presented to the emergency department on 04/13/2020 with the shortness of breath and pressure-like sensation in her chest. Patient had outpa tient testing for COVID 19 last and apparently she tested positive. Chest x-ray showed bibasilar infiltrate. CT chest showed large consolidation with adjacent opacities in the right lower lobe, no pleural effusion or pneumothorax, EKG showed sinus tachycardia. Lab work showed a white blood cell count is 2.5, hemoglobin of 12.5, lymphopenia with the lymphocyte, 0.5, d-dimer was 1.24, eventually sent renal profile were unremarkable, plasma lactic acid was 1.3, LFTs were within normal limits, troponin was less than 0.012, LDH 612, CRP was elevated at 128.5, pro-calcitonin level was 0.14. Patient was started on Zithromax and Rocephin, oral Decadron. She remains on room air, she is calm and comfortable, denies any chest pain right now, denies any hemoptysis, she is afebrile. On 04/15/2020 patient seen in follow-up on the general medical surgical floor, she is awake and alert, appears quite stable, breathing comfortably, room air pulse ox of 93-96%, she's been afebrile, follow-up chest x-ray reviewed showing redemonstration of right basilar pneumonia with increasing small right pleural effusion. Patient remains on a combination of azithromycin and Rocephin, she denies any chest pain, she remains on oral Decadron, she is on Lovenox at prophylactic doses. Today's labs have been reviewed, showing improvement and leukopenia, white blood cell count is 6.3, hemoglobin is 11. No acute events overnight, overall patient is feeling better. On 04/16/2020 patient seen in follow-up on the general medical surgical floor, she is on room air, the pulse ox of 96%, she's been hemodynamically stable, she's been afebrile, does have some shortness of breath with activity, otherwise no acute complaints, no chest pain, no hemoptysis, she has been on antibiotics with accommodation of azithromycin and Rocephin, her repeat COVID rapid test came back positive. Today's chest x-ray has been reviewed showing right basilar pneumonia and small right pleural effusion, stable in appearance from previous chest x-ray. Clinically she has remained stable. Blood cultures have shown no growth. He has been on oral Decadron, Lovenox at prophylactic dose, IV hydration, and antibiotics. No acute events overnight Objective - Vital Signs Vital signs: Vital Signs Temp 98.1 F 04/16/20 12:19 Pulse 80 04/16/20 12:19 Resp 17 04/16/20 12:19 BP 125/75 04/16/20 12:19 Pulse Ox 96 04/16/20 12:19 Intake & Output 04/15/20 04/16/20 04/16/20 18:59 06:59 18:59 Intake Total 1390 950 Balance 1390 950 Intake: Intake, IV Titration 650 Amount Sodium Chloride 0.9% 1, 600 000 ml @ 50 mls/hr IV . Q20H [facility] Rx#:[id number] cefTRIAXone 2 gm In 50 Sodium Chloride 0.9% 50 ml @ 100 mls/hr IVPB Q24HR [facility] Rx#:[id number] Oral 740 950 Other: Voiding Method Toilet Toilet Toilet # Voids 4 2 - Exam GENERAL EXAM: Alert, pleasant, 49-year-old white female on room air with a pulse ox between 93-96% comfortable in no apparent distress. HEAD: Normocephalic/atraumatic. EYES: Normal reaction of pupils, equal size. Conjunctiva pink, sclera white. NOSE: Clear with pink turbinates. THROAT: No erythema or exudates. NECK: No masses, no JVD, no thyroid enlargement, no adenopathy. CHEST: No chest wall deformity. Symmetrical expansion. LUNGS: Equal air entry with right basilar diminished breath sound CVS: Regular rate and rhythm, normal S1 and S2, no gallops, no murmurs, no rubs ABDOMEN: Soft, nontender. No hepatosplenomegaly, normal bowel sounds, no guarding or rigidity. EXTREMITIES: No clubbing, no edema, no cyanosis, 2+ pulses and upper and lower extremities. MUSCULOSKELETAL: Muscle strength and tone normal. SPINE: No scoliosis or deformity SKIN: No rashes CENTRAL NERVOUS SYSTEM: Alert and oriented -3. No focal deficits, tone is normal in all 4 extremities. PSYCHIATRIC: Alert and oriented -3. Appropriate affect. Intact judgment and insight. - Labs CBC & Chem 7: 04/14/20 22:56 04/13/20 14:13 Labs: Abnormal Lab Results - Last 24 Hours (Table) 04/15/20 Range/Units 16:45 Coronavirus (PCR) Detected A (Not Detectd) Microbiology - Last 24 Hours (Table) 04/13/20 14:13 Blood Culture - Preliminary Blood No Growth after 48 hours Assessment and Plan Plan: Assessment: #1. Acute COVID 19 infection, she had outpatient positive COVID 19 PCR test on 04/10/2020, patient had repeat patient rapid COVID test on 04/15/2020 and was found to be positive #2. Right focal basilar airspace opacity related to community acquired pneumonia #3. Dyspnea, chest pain related to community acquired pneumonia #4. Armor smoker, currently in remission #5. Lymphopenia related to COVID 19 infection #6. Increased d-dimer was CTA chest negative for pulmonary embolism #7. History of GERD and Sawyer's esophagus #8. History of back surgeries #9. Lithotripsy and cholecystectomy Plan: Patient has remained stable overnight, her rapid COVID test came back positive, but essentially stable, no fever or chills, she is on room air, she's had no acute events overnight, no worsening dyspnea, pulmonary perspective she can be considered for discharge home on antibiotics, and oral Decadron, she can follow- up on an outpatient basis for repeat chest x-ray in a few weeks. I performed a history & physical examination of the patient and discussed their management with my nurse practitioner, Aisha Klein. I reviewed the nurse practitioner's note and agree with the documented findings and plan of care. Liudmila ng sounds are positive for diminished breath sounds at the right base The findings and the impression was discussed with the patient. I attest to the documentation by the nurse practitioner. Time with Patient: Less than 30
[2020-04-16] MEDS: ENOXAPARIN 40 MG/0.4 ML SYRINGE SQ SCH (16:57)
--- NOTE | 2020-04-16 23:20 | P.DS ---
Providers Date of admission: 04/13/20 14:54 Attending physician: Andrea Perkins Consults: 04/14/20 11:58 Consult Physician Urgent Consulting Provider: Bailee Palencia Consult Reason/Comments: right LL pna, recent Covid Do you want consulting provider notified?: Yes Primary care physician: Lacy Arnold Hospital Course: Diagnoses: Right lower lobe pneumonia, mostly community acquired pneumonia. Bacterial infection is suspected over her viral pneumonia Sepsis secondary to above Recent history of COVID-19 infection GERD Hospital course: This is a pleasant 49 years old female who presents with respiratory distress and found to have right lower lobe pneumonia which is suspected to be community acquired pneumonia on the top of her recent diagnosis of Covid 19 infection a few days ago. Currently patient remains on room air. She is mildly dyspneic. CTA of the chest is negative for PE. Pro-calcitonin is slightly elevated at 0.14. Patient has been evaluated by tinter photograph and she was treated with Zithromax, Rodriguez, zinc, vitamin C, dexamethasone and IV fluid. Patient showed interval improvement. Patient remained on room air. The day of discharge no significant dyspnea, no chest pain, no other new symptoms Patient was cleared for discharge by pulmonary team Patient was discharged on short course of oral antibiotics as per pulmonary team recommendation, please see discharge instructions and medication for more details Problems and management plan were discussed with the patient and he verbalized understanding and acceptance Patient was found stable and can be discharged home however he needs follow-up as an outpatient. Patient was instructed to follow up with PCP Dr. Arnold one week and to follow up with tinter photograph Dr. Mart in 4 weeks Gen: patient is a AAOx3, no distress CVS: S1-S2, RRR, no murmur Lungs: B/L CTA, no wheezing Abdomen: soft, no distention, no tenderness, positive bowel sounds Extremity: no leg edema or induration Time spent more than 35 minutes Patient Condition at Discharge: Good Plan - Discharge Summary New Discharge Prescriptions: New Cefuroxime Axetil [Ceftin] 500 mg PO BID 7 Days #14 tab Dexamethasone [Decadron] 6 mg PO DAILY 6 Days #6 tablet Zinc Sulfate [Orazinc] 220 mg PO DAILY #30 cap guaiFENesin-DM 100-10MG/5ML [Robitussin DM] 10 ml PO Q6H #100 ml Acetaminophen Tab [Tylenol] 1,000 mg PO Q6HR PRN tab PRN Reason: Fever And/ Or Pain Ascorbic Acid [Vitamin C] 500 mg PO BID #60 tab Cholecalciferol [Vitamin D3 (25 Mcg = 1000 Iu)] 5,000 unit PO DAILY #120 tab Azithromycin [Zithromax] 500 mg PO DAILY #7 tab Continue Calcium Carb/Vitamin D3/Vit K1 [Citracal-D3 500 mg Soft Chew] 1 tab PO HS Omeprazole 20 mg PO DAILY Norethindrone [Lolita] 0.35 mg PO HS levOCARNitine [l-Carnitine] 500 mg PO HS Discharge Medication List Calcium Carb/Vitamin D3/Vit K1 [Citracal-D3 500 mg Soft Chew] 1 tab PO HS 03/15/16 [History] Norethindrone [Lolita] 0.35 mg PO HS 04/13/20 [History] Omeprazole 20 mg PO DAILY 04/13/20 [History] levOCARNitine [l-Carnitine] 500 mg PO HS 04/13/20 [History] Acetaminophen Tab [Tylenol] 1,000 mg PO Q6HR PRN tab 04/16/20 [Rx] Ascorbic Acid [Vitamin C] 500 mg PO BID #60 tab 04/16/20 [Rx] Azithromycin [Zithromax] 500 mg PO DAILY #7 tab 04/16/20 [Rx] Cefuroxime Axetil [Ceftin] 500 mg PO BID 7 Days #14 tab 04/16/20 [Rx] Cholecalciferol [Vitamin D3 (25 Mcg = 1000 Iu)] 5,000 unit PO DAILY #120 tab 04/16/20 [Rx] Dexamethasone [Decadron] 6 mg PO DAILY 6 Days #6 tablet 04/16/20 [Rx] Zinc Sulfate [Orazinc] 220 mg PO DAILY #30 cap 04/16/20 [Rx] guaiFENesin-DM 100-10MG/5ML [Robitussin DM] 10 ml PO Q6H #100 ml 04/16/20 [Rx] Follow up Appointment(s)/Referral(s): Lacy Arnold DO [Primary Care Provider] - 1-2 days (we Recommend repeat chest x-ray with her doctor in 2-3 weeks) Esteban Stafford DO [Doctor of Osteopathic Medicine] - 4 Weeks (We recommend to check your chest x-ray with your lung doctor) Patient Instructions/Handouts: Pneumonitis (DC) Activity/Diet/Wound Care/Special Instructions: Heart healthy diet Activities restricted until you see your doctor Discharge Disposition: HOME SELF-CARE
== END 2020-04-16 17:45 | disposition home or self-care (01) | DRG 871 ==
LOC: EC 12:57 → 4SSUR 14:54 → 6NMEDSUR 21:50
PROVIDERS: ADMIT Internal Medicine; ATTEND Internal Medicine
DX: A41.89 Other specified sepsis (principal); U07.1 COVID-19; J18.9 Pneumonia, unspecified organism; K21.9 Gastro-esophageal reflux disease without esophagitis; D72.810 Lymphocytopenia; K22.70 Barrett's esophagus without dysplasia; F17.200 Nicotine dependence, unspecified, uncomplicated; Z88.5 Allergy status to narcotic agent; Z88.8 Allergy status to other drugs, medicaments and biological substances; Z90.49 Acquired absence of other specified parts of digestive tract; Z90.89 Acquired absence of other organs; Z98.890 Other specified postprocedural states; Z87.442 Personal history of urinary calculi; Z81.8 Family history of other mental and behavioral disorders; Z98.891 History of uterine scar from previous surgery; Z86.19 Personal history of other infectious and parasitic diseases
CPT/HCPCS: 36415; 71045; 71275; 80053; 82728; 83605; 83615; 83735; 84145; 84484; 85025; 85379; 85610; 85730; 86140; 87040; 87635; 93005; 96361; 96365; 96367; 96375; 99291

== ENCOUNTER → 2021-04-22 | Outpatient (CLI) | payer BC ==
--- NOTE | 2021-04-22 23:53 | BD ---
EXAMINATION TYPE: Axial Bone Density DATE OF EXAM: 04/22/2021 COMPARISON: NONE CLINICAL HISTORY: Height: 5 FT 5 IN Weight: 143 FRAX RISK QUESTIONS: Alcohol (3 or more units per day): NO Family History (Parent hip fracture): NO Glucocorticoids (More than 3mos): NO (Ex: prednisone, prednisolone, methylprednisolone, dexamethasone, and hydrocortisone). History of Fracture in Adulthood: NO Secondary Osteoporosis: 1. Type 1 Diabetes: NO 2. Hyperthyroidism: NO 3. Menopause before 45: YES 4. Malnutrition: NO 5. Chronic liver disease: NO Rheumatoid Arthritis: NO Current Tobacco Use: NO RISK FACTORS HISTORY OF: Surgery to Spine/Hip(right/left)/Wrist (right/left): LUMBAR SURG When: 2000 Family History of Osteoporosis: NO Active: YES Diet low in dairy products/other sources of calcium: NO Postmenopausal woman: YES Take estrogen and/or progesterone medications: NO Lost more than 2 inches in height since high school: NO Frequent falls: NO Poor Health: GOOD Hyperparathyroidism: NO Adrenal Insufficiency: NO MEDICATIONS: Additional Medications: PRILOSEC, CITRICAL, ANXIETY MEDS, CONTROL Additional History: EXAM MEASUREMENTS: Bone mineral density about the R hip (g/cm2): 0.880 Bone mineral density about the L hip (g/cm2): 0.861 T Score values are as follows: -----R Neck: -1.1 -----L Neck: -1.3 -----R Total: -0.7 -----L Total: -0.7 Bone mineral density has: DECREASED -10.7 % since study of: 2014 Bone mineral density about the L Wrist (g/cm2): 0.666 T Score values are as follows: -----Dist. R+U: -0.5 -----Prox. R+U: -0.5 -----Radius total: -0.1 FIRST TIME WRIST HAS BEEN DONE IMPRESSION: Osteopenia (T Score between -2.5 and -1). There is slightly increased risk of fracture and the patient may be considered for treatment. Re-Screen 2-5 years. NOTE: T-SCORE=SD OF THE YOUNG ADULT MEAN.
--- NOTE | 2021-04-24 11:34 | MM ---
Reason for exam: screening (asymptomatic). Last mammogram was performed 3 years and 3 months ago. History: Patient is postmenopausal. Took hormonal contraceptives for 15 years. Physical Findings: A clinical breast exam by your physician is recommended on an annual basis and results should be correlated with mammographic findings. MG 3D Screening Mammo W/Cad Bilateral CC and MLO view(s) were taken. Prior study comparison: January 06, 2018, bilateral MG 3d screening mammo w/cad. September 26, 2014, bilateral MG screening mammo w CAD. There are scattered fibroglandular densities. There are benign appearing round calcifications bilaterally. There is no discrete abnormality. ASSESSMENT: Benign, BI-RAD 2 RECOMMENDATION: Routine screening mammogram of both breasts in 1 year.
== END | disposition home or self-care (01) ==
LOC: RADMAMWWP 08:08
PROVIDERS: ATTEND Family Medicine
DX: Z12.31 Encounter for screening mammogram for malignant neoplasm of breast (principal); M85.89 Other specified disorders of bone density and structure, multiple sites; Z78.0 Asymptomatic menopausal state
CPT/HCPCS: 77063; 77067; 77080

== ENCOUNTER → 2023-08-23 | Outpatient (CLI) | payer OTHER ==
--- NOTE | 2023-08-23 09:52 | US ---
EXAMINATION TYPE: US abdomen complete DATE OF EXAM: 08/23/2023 COMPARISON: NONE CLINICAL INDICATION: Female, 53 years old with history of R74.01 ELEVATION OF LEVELS OF LIVER TRANSAM INASE L; Elevated LFTs. Cholecystectomy 10 years ago. TECHNIQUE: Multiple sonographic images of the abdomen are obtained. FINDINGS: EXAM MEASUREMENTS: Liver Length: 18.8 cm Gallbladder Wall: Surgically absent cm CBD: 0.6 cm Spleen: 10.2 cm Right Kidney: 10.6 x 4.8 x 4.7 cm Left Kidney: 11.1 x 5.6 x 4.6 cm CRANE LADLE PERSON NOTES: Limited due to overlying gas Pancreas: Tail obscured by overlying bowel gas. Head appears WNL as best seen today. Liver: Mild hepatomegaly Gallbladder: Surgically absent Evidence for sonographic Colbert's sign: No CBD: Upper limits of normal Spleen: wnl as best seen Right Kidney: No hydronephrosis or masses seen as best visualized today Left Kidney: No hydronephrosis or masses seen as best visualized today Upper IVC: wnl Abd Aorta: Portions visualized WNL. . IMPRESSION: 1. Mild hepatomegaly.
== END | disposition home or self-care (01) ==
LOC: RADUSWWP 08:58
PROVIDERS: ATTEND Family Medicine
DX: R74.01 Elevation of levels of liver transaminase levels (principal); R16.0 Hepatomegaly, not elsewhere classified; R79.89 Other specified abnormal findings of blood chemistry; Z90.49 Acquired absence of other specified parts of digestive tract
CPT/HCPCS: 76700

== ENCOUNTER → 2023-09-05 | Outpatient (CLI) | payer OTHER ==
[2023-09-05 15:41] LABS: Basophils # (A) 0.03 X 10*3/uL (0.00-0.10); Basophils % (A) 0.5 %; Eosinophils # (A) 0.08 X 10*3/uL (0.04-0.35); Eosinophils % (A) 1.5 %; HCT 42.4 % (37.2-46.3); HGB 14.1 g/dL (12.0-15.0); Lymphocytes # (A) 1.96 X 10*3/uL (0.90-5.00); Lymphocytes % (A) 35.9 %; MCH 29.7 pg (27.0-32.0); MCHC 33.3 g/dL (32.0-37.0); MCV 89.3 FL (80.0-97.0); Mean Platelet Volume 10.1 FL (9.5-12.2); Monocytes % (A) 7.3 %; NRBC Per 100 WBC 0 X 10*3/uL (0.00-0.01); Neutrophils # (A) 2.98 X 10*3/uL (1.80-7.70); Neutrophils % (A) 54.6 %; Platelet Count 246 X 10*3/uL (140-440); RBC 4.75 X 10*6/uL (4.10-5.20); WBC 5.46 X 10*3/uL (4.50-10.00)
[2023-09-05 16:07] LABS: % Iron Saturation 17.87 (12.00-45.00); ALT 56 U/L (8-44); AST 38 U/L (13-35); Albumin 4.7 g/dL (3.8-4.9); Albumin/Globulin Ratio 2.35 Ratio (1.60-3.17); Alkaline Phosphatase 89 U/L (41-126); BUN/Creat Ratio 20.88 Ratio (12.00-20.00); Blood Urea Nitrogen 16.7 mg/dL (9.0-27.0); Calcium 9.6 mg/dL (8.7-10.3); Carbon Dioxide 23.5 mmol/L (21.6-31.8); Chloride 108 mmol/L (96-109); Glucose 95 mg/dL (70-110); Iron 74 UG/DL (50-170); Potassium 4.8 mmol/L (3.5-5.5); Sodium 144 mmol/L (135-145); Total Bilirubin 0.5 mg/dL (0.3-1.2); Total Iron Binding Capacity 414 UG/DL (228-460); Total Protein 6.7 g/dL (6.2-8.2)
[2023-09-05 21:47] LABS: Protein, Total 6.8 g/dL (6.2-8.2)
[2023-09-05 21:49] LABS: Ceruloplasmin 24.2 mg/dL (20.0-60.0)
[2023-09-06 17:32] LABS: Albumin 4.52 g/dL (3.80-4.90); Gamma Globulin 0.71 g/dL (0.70-1.50)
== END | disposition home or self-care (01) ==
LOC: LABWHC1 09:35
PROVIDERS: ATTEND Internal Medicine Gastroenterology
DX: R74.01 Elevation of levels of liver transaminase levels (principal)
CPT/HCPCS: 36415; 80053; 81596; 82103; 82390; 82728; 83516; 83540; 83550; 84165; 85025; 86038